=== PATIENT | male | born 1995 | race Caucasian/White ===

== ENCOUNTER 2017-05-16 02:22 | Emergency (ER) | payer BC ==
[~2017-05-16] VITALS: Ht 177.8 cm; Wt 111.3 kg
[2017-05-16] MEDS ORDERED: OMEP40CA2 PO (02:33)
[2017-05-16] MEDS ORDERED: PROAAER10 INH (02:33)
[2017-05-16] MEDS ORDERED: IPRATROPIUM 0.5MG/ALBUTEROL 2.5MG INH SOL UD 3ML (DUONEB)(J7620) NEB ONE (03:45)
[2017-05-16 04:42] VITALS: BP 124/65
== END 2017-05-16 04:43 | disposition home or self-care (01) ==
LOC: M ED 02:22
DX: J45.901 Unspecified asthma with (acute) exacerbation (principal); Z79.899 Other long term (current) drug therapy; Z88.2 Allergy status to sulfonamides